=== PATIENT | male | born 1980 | race American Indian/Alaskan Native ===

== ENCOUNTER 2022-01-10 11:09 | Outpatient (CLI) | payer OTHER ==
--- NOTE | 2022-01-10 16:07 | XRay Report ---
CHEST 2 VIEWS INDICATION / CLINICAL INFORMATION: CHECK FOR TO EXPOSURE OF TB. COMPARISON: None available. FINDINGS: SUPPORT DEVICES: None. HEART / MEDIASTINUM: The heart size and pulmonary vasculature are normal. LUNGS / PLEURA: No significant pulmonary or pleural abnormality. No pneumothorax. ADDITIONAL FINDINGS: There is widening of the superior mediastinum on the left with deviation of the trachea to the right. IMPRESSION: 1. No acute pulmonary disease. No radiographic evidence of active tuberculosis. 2. Widening of the superior mediastinum on the left with deviation of the trachea to the right is mos t commonly related to thyroid gland pathology. Thyroid ultrasound is recommended for further evaluati on. Signer Name: Leonardo Mark MD Signed: 01/10/2022 4:02 PM Workstation Name: [facility] [employer]
== END 2022-01-10 11:10 | disposition home or self-care (01) ==
LOC: XRAY 11:09
PROVIDERS: ATTEND Family Medicine
DX: A15.9 Respiratory tuberculosis unspecified (principal)
CPT/HCPCS: 71046